=== PATIENT | male | born 1965 | race Caucasian/White ===

== ENCOUNTER 2021-10-06 11:32 | Observation (INO) | payer MEDICAID, SELFPAY ==
[2021-10-06] VITALS (23 sets, daily range): BP systolic 102–155; BP diastolic 54–98; PULSE 84–138; RESP 12–36; TEMP 36.3–37; O2SAT 94–100; BMI 19.6
--- NOTE | ~2021-10-06 | US_ITS ---
EXAMINATION: US right upper quadrant DATE: 10/06/2021 14:14 INDICATION: Epigastric pain TECHNIQUE: Multiple grayscale and Doppler ultrasound images of the abdomen were obtained. COMPARISON: None available FINDINGS: The head and body of the pancreas are normal. The pancreatic tail is obscured by bowel gas. The liver demonstrates increased echogenicity, heterogenous echotexture, and decreased through trans mission. No surface nodularity. Normal hepatopetal flow in the main portal vein. The gallbladder is n ormal with no abnormal wall thickening, pericholecystic fluid or stones. The normal common bile duct measures 3 mm. There was no sonographic [place] sign. IMPRESSION: 1. Diffuse hepatic steatosis. Reviewed, dictated and finalized at location B.
--- NOTE | ~2021-10-06 | US_ITS ---
EXAMINATION: US renal BI DATE: 10/07/2021 11:58 INDICATION: Acute kidney injury TECHNIQUE: Multiple grayscale and Doppler ultrasound images of the kidneys were obtained. COMPARISON: None. FINDINGS: The right kidney measures 11.6 x 5.4 x 5.6 cm. The left kidney measures 11.4 x 5.4 x 6.5 cm . The kidneys demonstrate normal parenchymal echogenicity. There is no hydronephrosis. The bladder is normal. IMPRESSION: 1. Normal kidneys without hydronephrosis. Reviewed, dictated and finalized at location B.
--- NOTE | ~2021-10-06 | CT_ITS ---
EXAMINATION: CT abdomen pelvis w con DATE: 10/06/2021 14:54 INDICATION: Epigastric abdominal pain. TECHNIQUE: Computed tomography (CT) of the abdomen and pelvis was performed with 100 mL Omnipaque 350 intravenous contrast. Automated exposure control and iterative reconstruction technique were employe d. The dose-length product was 195.41 mGy-cm. COMPARISON: CT abdomen and pelvis 07/05/2018 FINDINGS: The visualized portions of the lung bases are clear without pneumonia or pleural effusion. The heart size is normal. No pericardial effusion. There is a small sliding hiatal hernia. There is w all thickening of the distal esophagus. There is diffuse hepatic steatosis. The gallbladder, spleen, pancreas, adrenal glands, and kidneys are normal. There are no dilated loops of bowel. The appendix i s normal. There are no pathologically enlarged lymph nodes. There is no free intraperitoneal fluid. A gain seen is osteonecrosis of the femoral heads. There is internal fixation of left femur. There is a chronic burst fracture of T12. There is a chronic compression fracture of L5. IMPRESSION: 1. Wall thickening of distal esophagus, likely esophagitis. 2. Small sliding hiatal hernia. 3. Diffuse hepatic steatosis. Reviewed, dictated and finalized at location A.
[2021-10-06 11:52] LABS: Basophils Percent Auto 0.1 % (0.2-1.2); Hematocrit 50.3 % (42.0-52.0); Hemoglobin 16.8 g/dL (14.0-18.0); Immature Granulocyte Absolute 0.06 K/mm3 (0.00-0.031); Immature Granulocyte Percent A 0.5 % (0-0.5); Lymphocytes Absolute Auto 1.14 K/mm3 (0.9-3.2); Lymphocytes Percent Auto 9.4 % (18.3-44.2); Mean Corpuscular HGB Conc 33.4 g/dl (32-36); Mean Corpuscular Hemoglobin 32.2 pg (26-34); Mean Corpuscular Volume 96.4 fl (80-100); Mean Platelet Volume 9.9 fl (7.4-10.4); Monocytes Absolute Auto 1.3 K/mm3 (0.1-0.6); Monocytes Percent Auto 10.3 % (2.6-8.5); Neutrophils Absolute Auto 9.7 K/mm3 (1.3-6.7); Neutrophils Percent Auto 79.7 % (45.5-73.1); Platelet Count Result 246 k/mm3 (150-375); Red Blood Count 5.22 M/mm3 (4.6-6.20); Red Cell Distribution Width 13.5 % (11.5-14.5); White Blood Count 12.2 K/mm3 (4.5-10.0)
[2021-10-06 12:01] LABS: Alanine Aminotransferase 55 U/L (4-50); Albumin Level 5.6 g/dL (3.5-5.1); Alkaline Phosphatase 101 U/L (38-126); Anion Gap 30 mmol/L (8-16); Aspartate Amino Transferase 90 U/L (17-59); Bilirubin,Total 1.8 mg/dL (0.2-1.3); Blood Urea Nitrogen 37 mg/dL (9-20); Calcium 10.3 mg/dL (8.4-10.2); Carbon Dioxide 28 mmol/L (22-30); Chloride 76 mmol/L (98-107); Estimated CRCL calculation 40 ml/min; Estimated Glomerular Filt Rate 42; Glucose 160 mg/dL (65-110); Lipase 701 U/L (23-300); Potassium 2.9 mmol/L (3.4-5.0); Sodium 134 mmol/L (137-145)
--- NOTE | 2021-10-06 13:03 | ECG_ITS ---
Measurements Intervals [place] Rate: 112 P: 81 [place]: 141 QRS: 258 QRSD: 148 T: 60 QT: 390 QTc: 533 Interpretive Statements SINUS TACHYCARDIA RIGHT AXIS DEVIATION RIGHT BUNDLE BRANCH BLOCK BASELINE ARTIFACT- I, II, III, AVR, AVL, AVF ABNORMAL ECG Electronically Signed On 10-06-2021 15:31:10 CDT by Vasyl Ríos D.O.
[2021-10-06] MEDS: ONDANSETRON INJ 4 MG/2 ML VIAL IV PUSH ×2 (13:10→20:33)
[2021-10-06] MEDS: MORPHINE SULFATE (*CRX) 4 MG/ML INJ IV PUSH ×2 (13:10→15:39)
[2021-10-06] MEDS: POTASSIUM CHLORIDE INJ 40 MEQ in SODIUM CHLORIDE 0.9% IV 500 ML 130 MEQ IVPB (13:25)
[2021-10-06 13:55] LABS: SARS-CoV-2 RNA PCR Negative
[2021-10-06 14:32] LABS: Appearance Urine Cloudy (Clear); Bilirubin Urine 3+ (Negative); Blood Urine Negative (Negative); Color Urine Amber (Yellow); Glucose Urine UA Negative (Negative); Ketones Urine 2+ mg/dL (Negative); Leukocyte Esterase Ur Negative LEU/UL (Negative); Nitrate Urine Positive (Negative); Protein Urine 2+ mg/dL (Negative); Specific Grav Ur 1.025 (1.001-1.035); pH Urine 5.5 (5.0-9.0)
[2021-10-06 14:43] LABS: Bacteria Urine Trace /hpf; Hyaline Casts Urine 50+ /lpf; Mucus Urine Heavy /lpf; Squamous Epithelial Cell Urine Rare /hpf (Few)
[2021-10-06 15:04] LABS: Add Urine Microscopic? YES
[2021-10-06] MEDS: PANTOPRAZOLE SODIUM IV 40 MG VIAL IV PUSH ×2 (15:07→20:33)
--- NOTE | 2021-10-06 15:25 | ED.NAVMDI ---
HPI - Nausea/Vomiting/Diarrhea General Chief complaint: Nausea/Vomiting/Diarrhea Stated complaint: weakness/back pain/decreased po Time Seen by Provider: 10/06/21 12:40 History of Present Illness HPI Narrative: Patient is a 56-year-old male who presents ER with nausea and vomiting as well as diarrhea. Ongoing for last 2 weeks. Reports anytime he eats anything he immediately comes back up. He has burning epigastric pain that moves up into his chest. Reports increased backaches due to vomiting. No fevers or chills or sweats. No loss of consciousness. Patient reports he does have history of alcohol abuse but has not drank in a couple of weeks. No blood in his stools or emesis. Related Data Home Medications Medication Instructions Recorded Confirmed atorvastatin 40 mg PO DAILY 10/06/21 10/06/21 cyclobenzaprine 10 mg PO DAILY 10/06/21 10/06/21 gabapentin [Neurontin] 600 mg PO TID 10/06/21 10/06/21 losartan-hydrochlorothiazide 50 tablet PO DAILY 10/06/21 10/06/21 tramadol 50 mg PO TID PRN 10/06/21 10/06/21 Allergies Allergy/AdvReac Type Severity Reaction Status Date / Time No Known Allergies Allergy Unverified 07/05/18 12:30 Review of Systems Review of Systems: All systems reviewed & are unremarkable except as noted in HPI and below Constitutional: Constitutional: Denies chills, Denies fever(s) and Reports weakness ENT: Denies nasal congestion and Denies sore throat Cardiovascular: Cardiovascular: Denies chest pain, Denies rapid heart rate and Denies radiating jaw, neck or arm pain Respiratory: Respiratory: Denies cough and Denies dyspnea Gastrointestinal: Gastrointestinal: Reports abdominal pain, Reports heartburn, Reports diarrhea, Reports nausea and Reports vomiting Musculoskeletal: Musculoskeletal: Reports back pain PMFSH Past Medical History Medical History (Updated 10/06/21 @ 22:33 by Ralph Quintanilla MD) Hypertension Surgical History Surgical History (Updated 10/06/21 @ 22:33 by Ralph Quintanilla MD) History of hip surgery Left Social History Social History Smoking packs per day: 1 Smoking cigarettes per day: 20.0 Years smoked: 15 Smoking pack-years: 15.00 Smoking status: Current every day smoker Tobacco type: cigarettes Alcohol intake: current Drinks per week: 1 Substance use type: marijuana Spiritual care concerns: No Exam Narrative: GENERAL: Uncomfortable-appearing, well-nourished, and in mild distress. HEAD: Normocephalic, atraumatic. EYES: PERRL and EOMI. ENT: Mucous membranes moist. CHEST: Clear to auscultation. No respiratory distress. HEART: Tachycardic and regular. Normal peripheral pulses. ABDOMEN: Soft, nontender, nondistended. EXTREMITIES: Normal range of motion. No edema. SKIN: Warm, dry, no rash. NEURO: Alert and oriented x3. PSYCH: Normal mood and affect. Course Course Emergency Course: Patient informed of results. Symptoms improving with supportive care. Admit to hospitalist service. Vital Signs Vital signs: Vital Signs Temperature 97.3 F L 10/06/21 11:36 Pulse Rate 122 H 10/06/21 11:36 Respiratory Rate 18 10/06/21 11:36 Blood Pressure 116/97 H 10/06/21 11:36 Pulse Oximetry 100 10/06/21 11:36 Temperature 98.6 F 10/06/21 22:00 Pulse Rate 105 H 10/06/21 22:28 Respiratory Rate 18 10/06/21 22:00 Blood Pressure 111/74 10/06/21 22:28 Pulse Oximetry 96 10/06/21 22:00 MDM - Nausea/Vomiting/Diarrhea Lab Data Result diagrams: 10/06/21 11:43 10/06/21 11:43 Labs: Lab Results 10/06/21 10/06/21 10/06/21 Range/Units 11:43 11:43 13:12 WBC 12.2 H (4.5-10.0) K/mm3 RBC 5.22 (4.6-6.20) M/mm3 Hgb 16.8 (14.0-18.0) g/dL Hct 50.3 (42.0-52.0) % MCV 96.4 (80-100) fl MCH 32.2 (26-34) pg MCHC 33.4 (32-36) g/dl RDW 13.5 (11.5-14.5) % Plt Count 246 (150-375) k/mm3 MPV 9.9 (7.4-10.4) fl Immature Gran % (Auto) 0.5 (0-0.5) % N
--- NOTE | 2021-10-06 16:30 | PM.IMHP ---
H&P: HPI History of Present Illness Date/Time: 10/06/21 16:30 Chief Complaint: Weakness and vomiting. Narrative: This is a 56-year-old male smoker with hypertension, coronary artery disease with history of stents, and chronic back pain due to bulging discs who presented to the emergency department from for evaluation of weakness and vomiting. He has not felt well ?for a while? with frequent nausea and emesis most days which he attributes to severe heartburn. His symptoms have gotten worse in the last couple of weeks and it is now to the point that he is not even able to hold down water for longer than a minute or so. Initially his emesis was was yellow though the last couple of days it has become more dark and brown speckled. Due to ongoing vomiting and poor oral intake, he has been feeling crease singly weak and dizzy upon standing. He has also noticed a decrease in urine output and darker urine than usual with mild dysuria. He has lost weight but unsure how much. Labs done today on arrival or consistent with dehydration with several, mild electrolyte abnormalities. AST, ALT, and bilirubin were also elevated and with further questioning he does admit to drinking vodka, which he describes as his pain medication. He goes on to say however that he typically only drinks 1 to 2 pt of vodka a month if that however he did drink heavier in the past. CT of the abdomen and pelvis today showed wall thickening of the distal esophagus, likely esophagitis as well as diffuse hepatic steatosis and he is being admitted in this setting for further treatment. He denies fever, upper respiratory symptoms, chest pain, shortness breast, cough, melena, hematochezia, and hematuria. He has not had a drink of alcohol or cigarette for 3 days due to feeling poorly. He denies tremors, hallucinations, sweats, and anxiety. Review of Systems Review of Systems: Twelve systems were reviewed and are negative except for as per HPI. [facility] Past Medical History Medical History (Updated 10/06/21 @ 23:05 by Giovana Strange PA-C) Alcohol abuse Arthritis Cerebrovascular accident (2011) Chronic back pain Chronic obstructive pulmonary disease Coronary artery disease Degenerative disc disease Hepatic steatosis Hyperlipidemia Hypertension Hypertension Tobacco dependence Surgical History Surgical History (Updated 10/06/21 @ 22:46 by Giovana Strange PA-C) History of cardiac catheterization History of coronary artery stent placement (2011) History of open reduction and internal fixation (ORIF) procedure Left femur fracture. Right ankle fracture. Family History Family History (Updated 10/06/21 @ 22:46 by Giovana Strange PA-C) Other Family history unknown Social History Social History (Updated 10/06/21 @ 22:47 by Giovana Strange PA-C) Social History: Surrogate decision maker: Zara Gordon, mother. Code status: Full code. Smoking packs per day: 1 Smoking cigarettes per day: 20.0 Years smoked: 15 Smoking pack-years: 15.00 Smoking status: Current every day smoker Tobacco type: cigarettes Alcohol intake: current Alcohol use details: Drink heavily in the past. Per patient report he drinks 1 to 2 pt of vodka a month. Substance use type: marijuana Additional living arrangements comments: Lives alone. Additional occupation/education comments: Disabled. Spiritual care concerns: No Meds Home Medications and Allergies Home Medications Medication Instructions Recorded Confirmed Type atorvastatin 40 mg PO DAILY 10/06/21 10/06/21 History cyclobenzaprine 10 mg PO DAILY 10/06/21 10/06/21 History gabapentin [Neurontin] 600 mg PO TID 10/06/21 10/06/21 History losartan-hydrochlorothiazide 50 tablet PO DAILY 10/06/21 10/06/21 History tramadol 50 mg PO TID PRN 10/06/21 10/06/21 History Allergies Allergy/AdvReac Type Severity Reaction Status Date / Time No Known Allergies Allergy Unverified 07/05/18 12:30 Vital Signs V
[2021-10-06] MEDS: SODIUM CHLORIDE 0.9% IV 1,000 ML 125 ML IV CONT (17:46)
--- NOTE | 2021-10-06 18:16 | ADMGEN ---
This patient, Jonathon Haskins, was admitted to [facility] Room 311-01 at 1800. Patient/family oriented to hospital policies and general routines including ID bracelet, bed and alarms, visiting hours, pain management, procedures, bathroom and other care routines, personal items, smoking policy, room service/diet, and visiting hours. Information on how to activate the Rapid Response Team has been discussed. Patient/Family are encouraged to report perceived risks to care and to ask questions if they do not understand what they are told or what they should do.
[2021-10-06] MEDS: HYDROcodone/acetaminophen (*CRX) 5-325 MG TABLET 1 TAB PO (20:33)
[2021-10-06 23:40] LABS: INR 0.9; Prothrombin Time 11.5 Seconds (11.1-14.7)
[2021-10-06 23:41] LABS: Partial Thromboplastin Time 29.7 SECONDS (22.3-36.8)
[2021-10-06 23:46] LABS: Alanine Aminotransferase 36 U/L (4-50); Albumin Level 3.8 g/dL (3.5-5.1); Alkaline Phosphatase 57 U/L (38-126); Anion Gap 8 mmol/L (8-16); Aspartate Amino Transferase 60 U/L (17-59); Bilirubin,Total 1.5 mg/dL (0.2-1.3); Blood Urea Nitrogen 26 mg/dL (9-20); Calcium 8.5 mg/dL (8.4-10.2); Carbon Dioxide 36 mmol/L (22-30); Chloride 86 mmol/L (98-107); Creatine Kinase 116 U/L (55-170); Estimated CRCL calculation 74 ml/min; Estimated Glomerular Filt Rate > 60; Glucose 110 mg/dL (65-110); Magnesium 1.4 mg/dL (1.6-2.3); Potassium 2.8 mmol/L (3.4-5.0); Sodium 130 mmol/L (137-145)
[2021-10-07] VITALS (13 sets, daily range): BP systolic 109–152; BP diastolic 66–90; PULSE 72–95; RESP 16–24; TEMP 36.2–37.2; O2SAT 94–99; BMI 19.7
[2021-10-07 00:25] LABS: Hepatitis B Surface Antigen Negative (Negative)
[2021-10-07] MEDS: THIAMINE HCL 200 MG/2 ML VIAL 100 MG IV PUSH (00:30)
[2021-10-07 00:31] LABS: HAV RESULT Negative (Negative); Hepatitis B Core IgM Result Negative (Negative)
[2021-10-07] MEDS: POTASSIUM CHLORIDE INJ 40 MEQ in SODIUM CHLORIDE 0.9% IV 500 ML 130 MEQ IVPB (00:31)
[2021-10-07 00:42] LABS: Hepatitis C Virus Antibody Negative (Negative)
[2021-10-07] MEDS: HYDROcodone/acetaminophen (*CRX) 5-325 MG TABLET 1 TAB PO ×2 (00:43→05:59)
[2021-10-07] MEDS: SODIUM CHLORIDE 0.9% IV 1,000 ML 125 ML IV CONT ×3 (04:32→17:09)
[2021-10-07 07:06] LABS: Hematocrit 37.1 % (42.0-52.0); Hemoglobin 12.8 g/dL (14.0-18.0); Mean Corpuscular HGB Conc 34.5 g/dl (32-36); Mean Corpuscular Hemoglobin 32.9 pg (26-34); Mean Corpuscular Volume 95.4 fl (80-100); Mean Platelet Volume 10.1 fl (7.4-10.4); Platelet Count Result 144 k/mm3 (150-375); Red Blood Count 3.89 M/mm3 (4.6-6.20); Red Cell Distribution Width 13.7 % (11.5-14.5); White Blood Count 6.7 K/mm3 (4.5-10.0)
[2021-10-07 07:25] LABS: Alanine Aminotransferase 32 U/L (4-50); Albumin Level 3.7 g/dL (3.5-5.1); Alkaline Phosphatase 55 U/L (38-126); Anion Gap 7 mmol/L (8-16); Aspartate Amino Transferase 53 U/L (17-59); Bilirubin,Total 1.2 mg/dL (0.2-1.3); Blood Urea Nitrogen 21 mg/dL (9-20); Calcium 8.2 mg/dL (8.4-10.2); Carbon Dioxide 34 mmol/L (22-30); Chloride 90 mmol/L (98-107); Estimated CRCL calculation 83 ml/min; Estimated Glomerular Filt Rate > 60; Glucose 100 mg/dL (65-110); Lipase 229 U/L (23-300); Magnesium 1.6 mg/dL (1.6-2.3); Phosphorus 1.7 mg/dL (2.5-4.5); Potassium 2.9 mmol/L (3.4-5.0); Sodium 131 mmol/L (137-145)
[2021-10-07 08:21] LABS: Glucose Point of Care 114 mg/dl (65-105)
[2021-10-07] MEDS: THERAPEUTIC MULTIVITAMINS/MINERALS TAB (*BKC) 1 TABLET PO (08:40)
[2021-10-07] MEDS: CYCLOBENZAPRINE HCL 10 MG TABLET PO (08:40)
[2021-10-07] MEDS: PANTOPRAZOLE SODIUM IV 40 MG VIAL IV PUSH ×2 (08:40→17:10)
[2021-10-07] MEDS: ATORVASTATIN 40 MG TABLET PO (08:41)
[2021-10-07] MEDS: FOLIC ACID 1 MG TABLET PO (08:41)
[2021-10-07] MEDS: GABAPENTIN 300 MG CAPSULE 600 MG PO ×2 (08:41→17:09)
[2021-10-07] MEDS: THIAMINE HCL 100 MG TABLET PO (08:41)
--- NOTE | 2021-10-07 09:44 | PM.IMPN ---
Progress Note: A&P Assessment and Plan (1) Dehydration: Code(s): E86.0 - Dehydration Status: Acute (2) Abnormal urinalysis: Code(s): R82.90 - Unspecified abnormal findings in urine Status: Acute (3) Transaminitis: Code(s): R74.01 - Elevation of levels of liver transaminase levels Status: Acute (4) Electrolyte abnormality: Code(s): E87.8 - Other disorders of electrolyte and fluid balance, not elsewhere classified Status: Acute (5) Esophagitis: Code(s): K20.90 - Esophagitis, unspecified without bleeding Status: Acute (6) Hepatic steatosis: Code(s): K76.0 - Fatty (change of) liver, not elsewhere classified Status: Acute (7) Chronic obstructive pulmonary disease: Code(s): J44.9 - Chronic obstructive pulmonary disease, unspecified Status: Acute (8) Hyperlipidemia: Code(s): E78.5 - Hyperlipidemia, unspecified Status: Acute (9) Chronic back pain: Code(s): M54.9 - Dorsalgia, unspecified; G89.29 - Other chronic pain Status: Acute (10) Hypertension: Code(s): I10 - Essential (primary) hypertension Status: Acute (11) Alcohol abuse: Code(s): F10.10 - Alcohol abuse, uncomplicated Status: Acute (12) Acute kidney failure: Code(s): N17.9 - Acute kidney failure, unspecified Status: Acute (13) Esophagitis: Code(s): K20.90 - Esophagitis, unspecified without bleeding Status: Acute (14) Tobacco dependence: Code(s): F17.200 - Nicotine dependence, unspecified, uncomplicated Status: Acute (15) Coronary artery disease: Code(s): I25.10 - Atherosclerotic heart disease of [place] coronary artery without angina pectoris Status: Acute (16) Acute hypokalemia: Code(s): E87.6 - Hypokalemia Status: Acute Additional Plan Patient reports having severe GERD however he takes no medication for this at home. I would not be surprised if he had gastritis or even peptic ulcers as well. For now will start him on IV Protonix [address] Spears consulted for possible endoscopy. Most likely due to significant dehydration. He is also on a thiazide diuretic at home, which will be held. Continue IV fluid rehydration repeat labs in a.m.. Check renal ultrasound as well. Including moderate hypokalemia, hyponatremia, and hypochloremia. Potassium is being replaced and he has been started on normal saline. Continue to monitor electrolytes and replace as needed. I think he may be drinking more than what he lets on however his imaging is consistent with hepatic steatosis as well. Check hepatitis for completeness sake and monitor. Check CK as well. He has been started on empiric ceftriaxone, pending urine culture. He is significantly volume depleted and is being hydrated as detailed above. Blood pressures were reviewed and they are stable. Monitor closely as his antihypertensives are on hold due to acute kidney injury. Patient tells me that he uses alcohol as his medication though it looks like he is prescribed Neurontin, tramadol, and cyclobenzaprine. No acute issues. Patient admits to drinking 1 to 2 pt of vodka a month though he drank heavier in the past. He has not had a drink for about 48 hours. Initiate CIKY protocol. Start thiamine and folic acid supplementation. He was instructed to contact his nurse immediately if he develops symptoms of withdrawal to include anxiety, sweats, hallucinations, etc.. He declines the need for nicotine patch. No acute issues. 10/07/21 NPO to EGD w Dr Dougalss PPI carafate?? Kphos repleted [facility] monitoring Subjective Date/time seen: 10/07/21 09:44 intolerance to PO, will have EGD w Dr Douglass pt is NPO and upset because he's starving pt reasured its for his safety that he is NPO Exam Narrative: GEN: NAD, AAOx3, cooperative HEENT: NCAT, MMM, EOMI Neck: no JVD Heart: S1S2 RRR Lungs: CTA B/l Abd: soft, NT, ND, bow
[2021-10-07] MEDS: LACTATED RINGERS 1,000 ML 150 ML IV CONT (14:41)
--- NOTE | 2021-10-07 15:11 | WPDANESEPPF ---
Anes - Initial Pre Proc Eval Procedure: Operation Date: 10/07/21 15:45 Proposed Procedures p Esophagogastroduodenoscopy - Sincere Spears MD Date/Time: 10/07/21 15:11 Surgeon: Taylor Saxena MD Pre Op Diagnosis: LINO, Hypokalemia, Esophagitis Patient Data Age: 56 Gender: M Height: 1.83 m Weight: 66 kg Last Vital Signs Temp 36.7 C 10/07/21 14:42 Pulse 82 10/07/21 14:42 Resp 19 10/07/21 14:42 BP 144/83 H 10/07/21 14:42 Pulse Ox 98 10/07/21 14:42 Allergies Allergy/AdvReac Type Severity Reaction Status Date / Time No Known Allergies Allergy Unverified 10/07/21 14:41 Home Medications Medication Instructions Recorded Confirmed Type atorvastatin 40 mg PO DAILY 10/06/21 10/06/21 History cyclobenzaprine 10 mg PO DAILY 10/06/21 10/06/21 History gabapentin [Neurontin] 600 mg PO TID 10/06/21 10/06/21 History losartan-hydrochlorothiazide 50 tablet PO DAILY 10/06/21 10/06/21 History tramadol 50 mg PO TID PRN 10/06/21 10/06/21 History Laboratory Tests 10/06/21 10/06/21 10/06/21 23:22 23:22 23:23 WBC RBC Hgb Hct MCV MCH MCHC RDW Plt Count MPV PT 11.5 Seconds Seconds (11.1-14.7) INR 0.9 APTT 29.7 SECONDS SECONDS (22.3-36.8) Sodium 130 mmol/L L mmol/L (137-145) Potassium 2.8 mmol/L L* mmol/L (3.4-5.0) Chloride 86 mmol/L L mmol/L (98-107) Carbon Dioxide 36 mmol/L H mmol/L (22-30) Anion Gap 8 mmol/L mmol/L (8-16) BUN 26 mg/dL H D mg/dL (9-20) Creatinine 0.90 mg/dL mg/dL (0.7-1.3) Estim Creat Clear Calc 74 ml/min ml/min Estimated GFR > 60 (59 - ) Glucose 110 mg/dL mg/dL (65-110) POC Capillary Glucose Calcium 8.5 mg/dL mg/dL (8.4-10.2) Phosphorus Magnesium 1.4 mg/dL L mg/dL (1.6-2.3) Total Bilirubin 1.5 mg/dL H mg/dL (0.2-1.3) Direct Bilirubin 0.0 mg/dL mg/dL (0-0.3) AST 60 U/L H U/L (17-59) ALT 36 U/L U/L (4-50) Alkaline Phosphatase 57 U/L U/L (38-126) Total Creatine Kinase 116 U/L U/L (55-170) Total Protein 7.0 g/dL g/dL (6.3-8.2) Albumin 3.8 g/dL g/dL (3.5-5.1) Lipase TSH (Reflex) Hepatitis A IgM Ab Negative (Negative) Hep Bs Antigen Negative (Negative) Hep B Core IgM Ab Negative (Negative) Hepatitis C Ab Screen Negative (Negative) 10/07/21 10/07/21 10/07/21 05:57 05:57 05:57 WBC 6.7 K/mm3 K/mm3 (4.5-10.0) RBC 3.89 M/mm3 L M/mm3 (4.6-6.20) Hgb 12.8 g/dL L D g/dL (14.0-18.0) Hct 37.1 % L % (42.0-52.0) MCV 95.4 fl fl (80-100) MCH 32.9 pg pg (26-34) MCHC 34.5 g/dl g/dl (32-36) RDW 13.7 % % (11.5-14.5) Plt Count 144 k/mm3 L k/mm3 (150-375) MPV 10.1 fl fl (7.4-10.4) PT INR APTT Sodium 131 mmol/L L mmol/L (137-145) Potassium 2.9 mmol/L L mmol/L (3.4-5.0) Chloride 90 mmol/L L mmol/L (98-107) Carbon Dioxide 34 mmol/L H mmol/L (22-30) Anion Gap 7 mmol/L L mmol/L (8-16) BUN 21 mg/dL H mg/dL (9-20) Creatinine 0.80 mg/dL mg/dL (0.7-1.3) Estim Creat Clear Calc 83 ml/min ml/min Estimated GFR > 60 (59 - ) Glucose 100 mg/dL mg/dL (65-110) POC Capillary Glucose Calcium 8.2 mg/dL L mg/dL (8.4-10.2) Phosphorus 1.7 mg/dL L mg/dL (2.5-4.5) Magnesium 1.6 mg/dL mg/dL (1.6-2.3) Total Bilirubin 1.2 mg/dL mg/dL (0.2-1.3) Direct Bilirubin AST 53 U/L U/L (17
--- NOTE | 2021-10-07 16:16 | WPDGICN ---
Assessment and Plan Assessment and plan (1) Esophagitis: Code(s): K20.90 - Esophagitis, unspecified without bleeding Status: Acute Assessment and Plan: will proceed with egd, I suspet that he will have erosive esophagitis given symptoms and also alcohol use continue with iv protonix more recommendations after egd (2) Dehydration: Code(s): E86.0 - Dehydration Status: Acute Assessment and Plan: already feeling better anorexia and more emesis lately (3) Nausea and vomiting in adult: Code(s): R11.2 - Nausea with vomiting, unspecified Status: Acute (4) GERD (gastroesophageal reflux disease): Code(s): K21.9 - Gastro-esophageal reflux disease without esophagitis Status: Acute (5) Hepatic steatosis: Code(s): K76.0 - Fatty (change of) liver, not elsewhere classified Status: Acute Assessment and Plan: probably alcohol related advised to stop drinking thiamine, mvi (6) Alcohol abuse: Code(s): F10.10 - Alcohol abuse, uncomplicated Status: Acute (7) Coronary artery disease: Code(s): I25.10 - Atherosclerotic heart disease of [place] coronary artery without angina pectoris Status: Acute (8) Acute hypokalemia: Code(s): E87.6 - Hypokalemia Status: Acute Assessment and Plan: treated, continue to monitor (9) Colon cancer screening: Code(s): Z12.11 - Encounter for screening for malignant neoplasm of colon Status: Acute Assessment and Plan: never had colonoscopy, will arrange one as outpatient GI Consult Note Consult date/time: 10/07/21 16:16 Reason for consult: n/v, esophagitis by CT scan HPI: Jonathon Haskins is a 56 year old male with history of hypertension, coronary artery disease with history of stents, chronic back pain who came to the emergency department because ongoing vomiting. He says that has been having nausea for quite some time but lately unable to keep much down, also experiencing sour taste in mouth after emesis and severe heartburn. He also is feeling weaker and dizzy. He admits to been drinking more lately. Labs showed hemoconcentration consistent with dehydration, bili 1.8, k 2.8. CT of the abdomen and pelvis reviewed and showed wall thickening of the distal esophagus, likely esophagitis as well as diffuse hepatic steatosis. Patient is feeling better after medical treatment and hydration. He never had scopes. Review of Systems Constitutional: Constitutional: Denies chills and Reports weakness Eyes: Eyes: Denies blurry vision ENT: Reports Normal hearing present Cardiovascular: Cardiovascular: Reports lightheadedness Respiratory: Respiratory: Denies dyspnea Gastrointestinal: Gastrointestinal: Reports abdominal pain, Reports nausea and Reports vomiting Genitourinary: Genitourinary: Denies dysuria Musculoskeletal: Musculoskeletal: Denies neck pain Integumentary/Breasts: Skin/Breast: Denies dry skin Neurologic: Denies headache(s) Psychiatric: Psychiatric: Reports no additional psychiatric complaints [facility] Past Medical History Medical History (Updated 10/07/21 @ 17:07 by Sincere Spears MD) Alcohol abuse Arthritis Cerebrovascular accident (2011) Chronic back pain Chronic obstructive pulmonary disease Colon cancer screening Coronary artery disease Degenerative disc disease GERD (gastroesophageal reflux disease) Hepatic steatosis Hyperlipidemia Hypertension Hypertension Nausea and vomiting in adult Tobacco dependence Surgical History Surgical History History of cardiac catheterization History of coronary artery stent placement (2011) History of open reduction and internal fixation (ORIF) procedure Left femur fracture. Right ankle fracture. Family History Family History Other Family history unknown Social History So
[2021-10-07] MEDS: POTASSIUM PHOS,M-BASIC-D-BASIC 15 MMOL in SODIUM CHLORIDE 0.9% IV 250 ML 63.75 MMOL IVPB (17:07)
[2021-10-07] MEDS: POTASSIUM CHLORIDE 20 MEQ TABLET.ER 40 MEQ PO (17:08)
[2021-10-07] MEDS: SUCRALFATE SUSP 100 MG/ML 10 ML UDC 1000 MG PO ×2 (17:09→20:32)
[2021-10-08] VITALS (8 sets, daily range): BP systolic 95–131; BP diastolic 67–90; PULSE 75–110; RESP 16–18; TEMP 36.1–37.7; O2SAT 96–98
[2021-10-08] MEDS: SODIUM CHLORIDE 0.9% IV 1,000 ML 125 ML IV CONT (01:57)
[2021-10-08 07:15] LABS: Hematocrit 36.4 % (42.0-52.0); Immature Platelet Fraction Pct 6.5 % (0.9-11.2); Mean Platelet Volume 10.7 fl (7.4-10.4); Platelet Count Result 136 k/mm3 (150-375); Red Blood Count 3.64 M/mm3 (4.6-6.20); Red Cell Distribution Width 13.4 % (11.5-14.5); White Blood Count 6.7 K/mm3 (4.5-10.0)
[2021-10-08 07:25] LABS: Anion Gap 7 mmol/L (8-16); Blood Urea Nitrogen 16 mg/dL (9-20); Calcium 7.7 mg/dL (8.4-10.2); Carbon Dioxide 34 mmol/L (22-30); Chloride 92 mmol/L (98-107); Estimated CRCL calculation 85 ml/min; Estimated Glomerular Filt Rate > 60; Glucose 123 mg/dL (65-110); Magnesium 1.6 mg/dL (1.6-2.3); Potassium 2.5 mmol/L (3.4-5.0); Sodium 133 mmol/L (137-145)
[2021-10-08] MEDS: SUCRALFATE SUSP 100 MG/ML 10 ML UDC 1000 MG PO ×2 (07:48→12:09)
--- NOTE | 2021-10-08 09:01 | PM.DS ---
DS: Admitting Diagnosis Discharge Date 10/08/21 Admitting Diagnosis (1) Esophagitis: Code(s): K20.90 - Esophagitis, unspecified without bleeding Status: Acute Assessment and Plan: Patient reports having severe GERD however he takes no medication for this at home. I would not be surprised if he had gastritis or even peptic ulcers as well. For now will start him on IV Protonix [address] Spears consulted for possible endoscopy. (2) Acute kidney failure: Code(s): N17.9 - Acute kidney failure, unspecified Status: Acute Assessment and Plan: Most likely due to significant dehydration. He is also on a thiazide diuretic at home, which will be held. Continue IV fluid rehydration repeat labs in a.m.. Check renal ultrasound as well. (3) Electrolyte abnormality: Code(s): E87.8 - Other disorders of electrolyte and fluid balance, not elsewhere classified Status: Acute Assessment and Plan: Including moderate hypokalemia, hyponatremia, and hypochloremia. Potassium is being replaced and he has been started on normal saline. Continue to monitor electrolytes and replace as needed. (4) Transaminitis: Code(s): R74.01 - Elevation of levels of liver transaminase levels Status: Acute Assessment and Plan: I think he may be drinking more than what he lets on however his imaging is consistent with hepatic steatosis as well. Check hepatitis for completeness sake and monitor. Check CK as well. (5) Abnormal urinalysis: Code(s): R82.90 - Unspecified abnormal findings in urine (6) Dehydration: Code(s): E86.0 - Dehydration (7) Hypertension: Code(s): I10 - Essential (primary) hypertension (8) Chronic back pain: Code(s): M54.9 - Dorsalgia, unspecified; G89.29 - Other chronic pain (9) Chronic obstructive pulmonary disease: Code(s): J44.9 - Chronic obstructive pulmonary disease, unspecified (10) Alcohol abuse: Code(s): F10.10 - Alcohol abuse, uncomplicated (11) Tobacco dependence: Code(s): F17.200 - Nicotine dependence, unspecified, uncomplicated (12) Coronary artery disease: Code(s): I25.10 - Atherosclerotic heart disease of [place] coronary artery without angina pectoris DS: Discharge Diagnosis Discharge Diagnosis (1) GERD (gastroesophageal reflux disease): Code(s): K21.9 - Gastro-esophageal reflux disease without esophagitis Status: Acute (2) Nausea and vomiting in adult: Code(s): R11.2 - Nausea with vomiting, unspecified Status: Acute (3) Dehydration: Code(s): E86.0 - Dehydration Status: Acute (4) Abnormal urinalysis: Code(s): R82.90 - Unspecified abnormal findings in urine Status: Acute (5) Transaminitis: Code(s): R74.01 - Elevation of levels of liver transaminase levels Status: Acute (6) Electrolyte abnormality: Code(s): E87.8 - Other disorders of electrolyte and fluid balance, not elsewhere classified Status: Acute (7) Esophagitis: Code(s): K20.90 - Esophagitis, unspecified without bleeding Status: Acute (8) Hepatic steatosis: Code(s): K76.0 - Fatty (change of) liver, not elsewhere classified Status: Acute (9) Chronic obstructive pulmonary disease: Code(s): J44.9 - Chronic obstructive pulmonary disease, unspecified Status: Acute (10) Chronic back pain: Code(s): M54.9 - Dorsalgia, unspecified; G89.29 - Other chronic pain Status: Acute (11) Hyperlipidemia: Code(s): E78.5 - Hyperlipidemia, unspecified Status: Acute (12) Hypertension: Code(s): I10 - Essential (primary) hypertension Status: Acute (13) Coronary artery disease: Code(s): I25.10 - Atherosclerotic heart disease of [place] coronary artery without angina pectoris Status: Acute (14) Alcohol abuse: Code(s): F10.10 - Alcohol abuse, uncomplicated
[2021-10-08] MEDS: MAGNESIUM SULF 2 GM/WATER 50ML 2 GM/50 ML BAG IVPB (09:03)
[2021-10-08] MEDS: GABAPENTIN 300 MG CAPSULE 600 MG PO ×3 (09:03→17:01)
[2021-10-08] MEDS: ATORVASTATIN 40 MG TABLET PO (09:04)
[2021-10-08] MEDS: CYCLOBENZAPRINE HCL 10 MG TABLET PO (09:04)
[2021-10-08] MEDS: THIAMINE HCL 100 MG TABLET PO (09:04)
[2021-10-08] MEDS: PANTOPRAZOLE SODIUM IV 40 MG VIAL IV PUSH (09:04)
[2021-10-08] MEDS: THERAPEUTIC MULTIVITAMINS/MINERALS TAB (*BKC) 1 TABLET PO (09:04)
[2021-10-08] MEDS: FOLIC ACID 1 MG TABLET PO (09:04)
[2021-10-08] MEDS: POTASSIUM CHLORIDE 20 MEQ PACKET (FOR LIQUID) 40 MEQ PO (09:05)
[2021-10-08] MEDS: HYDROcodone/acetaminophen (*CRX) 5-325 MG TABLET 1 TAB PO ×2 (09:05→15:19)
--- NOTE | 2021-10-08 09:41 | WPDANESPN ---
Anes - Prog Note Post-Op Date/Time: 10/08/21 09:41 Cardiovascular status: normal Respiratory status: normal Airway patency: baseline Mental status: baseline Post-Op hydration status: normal Vital Signs: Last Vital Signs Temp 99.8 F H 10/08/21 08:00 Pulse 89 10/08/21 08:00 Resp 16 10/08/21 08:00 BP 131/90 10/08/21 08:00 Pulse Ox 97 10/08/21 08:00 Pain Score (VAS): 06/13 I/O: Intake & Output 10/07/21 10/08/21 10/08/21 23:59 07:59 15:59 Intake Total 622 1240 Output Total 200 800 Balance 422 440 Laboratory Tests 10/08/21 06:25 10/08/21 06:25 10/08/21 10/08/21 06:25 06:25 WBC 6.7 RBC 3.64 L Hgb 12.0 L Hct 36.4 L MCV 100.0 MCH 33.0 MCHC 33.0 RDW 13.4 Plt Count 136 L MPV 10.7 H % Immature Plt Fraction 6.5 Sodium 133 L Potassium 2.5 L* Chloride 92 L Carbon Dioxide 34 H Anion Gap 7 L BUN 16 Creatinine 0.80 Estim Creat Clear Calc 85 Estimated GFR > 60 Glucose 123 H Calcium 7.7 L Magnesium 1.6 Microbiology 10/06/21 14:22 Unspecified Urine Culture - Final Post-procedural complaints: none Patient Feedback: Patient satisfied with anesthetic care.
[2021-10-08] MEDS: POTASSIUM CHLORIDE 20 MEQ TABLET 40 MEQ PO (17:01)
[2021-10-08 18:55] LABS: Potassium 3.5 mmol/L (3.4-5.0)
== END 2021-10-08 20:20 | disposition home or self-care (01) ==
LOC: ANHED 15:27 → ANH3MEDSUR 17:15
PROVIDERS: Emergency Medicine; Internal Medicine Gastroenterology; Physician Assistant; Admitting Provider Hospitalist; Emergency Provider Emergency Medicine; Visit Provider Hospitalist
PROC: 0DJ08ZZ Inspection of Upper Intestinal Tract, Via Natural or Artificial Opening Endoscopic (ICD-10-PCS; CPT 43235; principal; 2021-10-07 15:45)
DX: E86.0 Dehydration (principal); N17.9 Acute kidney failure, unspecified; E87.1 Hypo-osmolality and hyponatremia; E87.6 Hypokalemia; E87.8 Other disorders of electrolyte and fluid balance, not elsewhere classified; K22.10 Ulcer of esophagus without bleeding; K29.70 Gastritis, unspecified, without bleeding; I10 Essential (primary) hypertension; I25.10 Atherosclerotic heart disease of native coronary artery without angina pectoris; J44.9 Chronic obstructive pulmonary disease, unspecified; K44.9 Diaphragmatic hernia without obstruction or gangrene; K76.0 Fatty (change of) liver, not elsewhere classified; K21.9 Gastro-esophageal reflux disease without esophagitis; E78.5 Hyperlipidemia, unspecified; R82.90 Unspecified abnormal findings in urine; M19.90 Unspecified osteoarthritis, unspecified site; M54.9 Dorsalgia, unspecified; F17.210 Nicotine dependence, cigarettes, uncomplicated; G89.29 Other chronic pain; F10.10 Alcohol abuse, uncomplicated; Z20.822 Contact with and (suspected) exposure to COVID-19; Z95.5 Presence of coronary angioplasty implant and graft; Z86.73 Personal history of transient ischemic attack (TIA), and cerebral infarction without residual deficits
CPT/HCPCS: 43239; 36415; 74177; 76705; 76775; 80048; 80053; 80074; 80076; 81001; 82550; 82948; 83690; 83735; 84100; 84132; 84443; 85025; 85027; 85055; 85610; 85730; 86850; 86900; 86901; 87081; 87086; 87088; 88305; 93005; 96361; 96365; 96366; 96375; 96376; 99285; A9270; C9113; C9803; G0378; J0696; J2270; J2405; J2704; J3411; J3475; J3480; J7030; J7040; J7050; J7120; Q9967; U0003; U0005